=== PATIENT | female | born 1965 | race Caucasian/White ===

== ENCOUNTER 2017-01-21 18:19 | Emergency (ER) | payer OTHER ==
[~2017-01-21] VITALS: Ht 167.6 cm; Wt 68.5 kg
[2017-01-21 18:30] VITALS: Ht 167.6 cm; Wt 68.5 kg
[2017-01-21] MEDS ORDERED: KETOROLAC 15 MG INJ IM STA (21:03)
--- NOTE | 2017-01-21 21:03 | ERD ---
ER Documentation Chief Complaint Date/Time DATE: 01/21/17 TIME: 21:00 Chief Complaint r foot pain for a week and back pain for 3 days HPI This 51-year-old female presents to emergency department with low back pain x 3 days pain is l/s and radiating down legs denies dysuria, urinary incontinence, nausea vomiting fever chills. Has secondary complaint of a right foot injury 7 days ago, a heavy crystal glass fell on dorsum of right foot, pt has healing abrasion 4-5 tarsal patient reports she did not have medical evaluation thought it would improve on its own patient reports pain and swelling has not subsided. Patient reports she is able to wear normal shoes, is able to ambulate without deficit but at the end of the day her foot swells. Numbness or tingling to feet or toes. ROS All systems reviewed and are negative except as per history of present illness. Medications Home Meds Active Scripts Diazepam* (Valium*) 5 Mg Tablet, 5 MG PO Q8 for MUSCLE SPASMS, #10 TAB Prov:EDUAR,AMAN 01/21/17 Naproxen* (Naprosyn*) 500 Mg Tablet, 500 MG PO BID Y for PAIN AND/OR INFLAMMATION, #20 TAB Prov:EDUAR,AMAN 01/21/17 Allergies Allergies: Coded Allergies: No Known Allergy (Unverified , 01/21/17) PMhx/Soc Medical and Surgical Hx: pt denies Medical Hx, pt denies Surgical Hx Hx Alcohol Use: No Hx Substance Use: No Hx Tobacco Use: No Smoking Status: Never smoker Physical Exam Vitals Vitals stable, triage notes reviewed Physical Exam Const: Well-nourished well-appearing well-hydrated no acute distress Head: Eyes: Normal Conjunctiva, PERRLA, EOMI ENT: Normal External Ears, Nose and Mouth, mucous membranes moist Neck: Resp: Cardio: Abd: Skin: Back Exam: Skin: No bruising or rash Compartments: Soft Motor: Normal flexion and extension of bilateral hip/knee/ ankle/foot Sensation: Intact to light touch throughout Bones: No midline TTP Ext: Lower Extremity - bilateral: Skin: Healing abrasion over first and second metatarsal Compartments: [Soft] Motor: Full active range of motion hip/knee/ankle/foot Sensation: intact to light touch across all surfaces surfaces. Bones: Nontender pelvis/knee/proximal tibia/Metatarsal tenderness Joints: No effusion or laxity Pulses/Perfusion: 2+ DP, Capillary refill < 2 seconds Neur: Awake and alert Psych: Normal Mood and Affect Results 24 hrs Current Medications Medications (Trade) Dose Ordered Sig/Jose Martin Route PRN Reason Start Time Stop Time Status Last Admin Dose Admin Ketorolac Tromethamine (Toradol) 15 mg ONCE STAT IM 01/21/17 21:03 01/21/17 21:07 DC 01/21/17 21:32 Diazepam (Valium) 5 mg ONCE ONCE PO 01/21/17 21:30 01/21/17 21:31 DC 01/21/17 21:32 Procedures/MDM PROCEDURE: XR Foot. CLINICAL INDICATION: 51 years of age, Female. Pain. Injury. TECHNIQUE: Three views of the right foot. COMPARISON: None available. FINDINGS: Negative for evidence of acute fracture. Normal alignment. Negative for significant soft tissue swelling. Negative for evidence of radiopaque foreign body. IMPRESSION: Negative for evidence of acute fracture or dislocation of the right foot. Electronically viewed and signed by Physician Joel on 01/21/2017 23: 40 PROCEDURE: XR Lumbar Spine. CLINICAL INDICATION: 51 years of age, female. Radiculopathy. TECHNIQUE: AP, lateral and cone-down lateral view of the lumbar spine were obtained. COMPARISON: No prior studies are available for comparison. FINDINGS: There are 5 lumbar-type vertebrae. Lumbar spine is imaged from 12 to the sacrum. Normal alignment. Negative for evidence of acute fracture or traumatic subluxation. Disk spaces are maintained. The posterior elements are unremarkable. Sacroiliac joints appear normal. The soft tissues appear normal. IMPRESSION: Unremarkable x-ray of the lumbar spine. Negative for significant degenerative change. Cause for radiculopathy is not evident. Physician Joel Date Time Electronically viewed and signed by Physician Joel on 01/21/2017 23: 38 Pleasant 51-year-old female presents to emergency department for evaluation of sudden onset of back pain described as mid low back radiating down both legs. Denies any alteration in bowel or bladder or difficulty ambulating. Patient reports pain with sitting and standing from a seated position. Patient has secondary complaint of right foot contusion dropped a heavy crystal glass on her foot 7 days ago did not seek medical attention, treated conservatively with rest and ibuprofen with little relief of symptoms. Patient reports that she took 800 mg of ibuprofen today with little change in back pain or foot pain, foot is now swelling. Patient noted to have a small abrasion on dorsum between fourth and fifth digit. Patient treated for pain with Toradol, Valium, x-ray of lumbar spine and foot radiologist impression is unremarkable x-ray of the lumbar spine negative for significant degenerative changes causes for radiculopathy is not evident. Radiology impression right foot negative for evidence of acute fracture or dislocation of foot. She is placed in a Minesh wrap , discharged with Naprosyn 500 mg 1 tab p.o. twice daily 10 days, Valium 5 mg 1 tab p.o. 3 times daily as needed myopathy count of 10 given. Follow-up with primary physician for referral to physical therapy. Use Minesh wrap on right foot when ambulating, Patient is stable with no new complaints during ER course, clinically there is no current evidence to suggest compartment syndrome, cellulitis, cauda equina syndrome,or any other emergent condition appearing to require further evaluation or hospitalization. I feel the patient is stable for discharge at this time. I have discussed results, examination findings, the treatment plan with the patient and family present prior to discharge. Indications for emergent reevaluation, side effects of medication were also discussed. All questions were answered. Patient verbalizes understanding and agrees with plan of care. Departure Diagnosis: Primary Impression: Lumbar back sprain Encounter type: initial encounter Qualified Code: S33.5XXA - Lumbar sprain, initial encounter Additional Impression: Foot contusion Encounter type: initial encounter Laterality: right Qualified Code: S90.31XA - Contusion of right foot, initial encounter Condition: Good Patient Instructions: Back Exercises, Lumbar, Causes of Lumbar (Low Back) Pain , Contusion, Foot Additional Instructions: Thank you for for coming to [facility] for your care today. Please ask your nurse or provider if you have questions about your care today and do not leave until all your questions have been answered. Please use any medications given as directed and follow-up with your doctor (or the doctor you were referred to) in the next 2-3 days. If you do not have a primary care doctor you may follow up at the [facility] (listed below). You may also use motrin and tylenol as needed for fever and/or pain unless instructed otherwise by your provider or nurse. Indications for more urgent follow-up have been discussed, but you may return to the Emergency Department at ANY time for any worrisome or worsening symptoms. If you have abdominal pain, please know that no test or exam you received is perfect and you should follow up within 8 hours for continued pain. If you had any imaging studies today, such as an X-Ray or CT Scan, these studies will be reviewed later by a radiologist. You will be called if there are important findings that were not identified today, so make sure the contact information you provided at registration is correct. If you received any narcotic pain control medicine today, such as Vicodin, Morphine or Dilaudid, your coordination and judgment may be affected for a number of hours. Please do not drive or operate heavy machinery, and you may want someone to assist you at home. If you were given a prescription for narcotic medication, be aware that it is very addictive- use sparingly and only if necessary. AMAN WITT Jan 21, 2017 21:03 number of hours. Please do not drive or operate heavy machinery, and you may want someone to assist you at home. If you were given a prescription for narcotic medication, be aware that it is very addictive- use sparingly and only if necessary. AMAN WITT Jan 21, 2017 21:03
[2017-01-21] MEDS ORDERED: DIAZEPAM 5 MG TAB PO ONE (21:30)
--- NOTE | 2017-01-21 23:39 | RADRPT ---
PROCEDURE: XR Lumbar Spine. CLINICAL INDICATION: 51 years of age, female. Radiculopathy. TECHNIQUE: AP, lateral and cone-down lateral view of the lumbar spine were obtained. COMPARISON: No prior studies are available for comparison. FINDINGS: There are 5 lumbar-type vertebrae. Lumbar spine is imaged from 12 to the sacrum. Normal alignment. Negative for evidence of acute fracture or traumatic subluxation. Disk spaces are maintained. The posterior elements are unremarkable. Sacroiliac joints appear normal. The soft tissues appear normal. IMPRESSION: Unremarkable x-ray of the lumbar spine. Negative for significant degenerative change. Cause for radi culopathy is not evident. RPTAT: HCTS Physician Joel Date Time Electronically viewed and signed by Physician Joel on 01/21/2017 23:38 CS/
--- NOTE | 2017-01-21 23:40 | RADRPT ---
PROCEDURE: XR Foot. CLINICAL INDICATION: 51 years of age, Female. Pain. Injury. TECHNIQUE: Three views of the right foot. COMPARISON: None available. FINDINGS: Negative for evidence of acute fracture. Normal alignment. Negative for significant soft tissue swelling. Negative for evidence of radiopaque foreign body. IMPRESSION: Negative for evidence of acute fracture or dislocation of the right foot. RPTAT: HCTS Physician Joel Date Time Electronically viewed and signed by Lobo Gaona Physician on 01/21/2017 23:40 CS/
[2017-01-21] MEDS ORDERED: NAPR-260 PO (23:58)
[2017-01-21] MEDS ORDERED: DIAZ-90 PO (23:58)
[2017-01-22 00:18] VITALS: BP 138/63; PULSE 61; RESP 16
== END 2017-01-22 00:19 | disposition home or self-care (01) ==
LOC: FTE 18:19
DX: S33.5XXA Sprain of ligaments of lumbar spine, initial encounter (principal); S90.31XA Contusion of right foot, initial encounter; W20.8XXA Other cause of strike by thrown, projected or falling object, initial encounter; Y92.9 Unspecified place or not applicable
CPT/HCPCS: 72100; 73630; 96372; 99284; J1885